=== PATIENT | male | born 1990 | race Caucasian/White ===

== ENCOUNTER → 2019-05-30 14:23 | Outpatient (CLI) | payer OTHER, SELFPAY ==
[2019-05-30 15:51] LABS: Liquefaction Semen YES (YES); Volume Semen 7.75 (1.0-5.0)
[2019-05-30 15:52] LABS: Sperm Count 105 x10^6/mL (20-150); Sperm Morphology 18 %ABNORM (0-30); Sperm Motility 70% % Motile
== END ==
PROVIDERS: Referring Provider Obstetrics & Gynecology; Visit Provider Obstetrics & Gynecology
DX: Z31.41 Encounter for fertility testing (principal)
CPT/HCPCS: 89320

== ENCOUNTER → 2019-11-03 07:34 | Outpatient (CLI) | payer OTHER, SELFPAY ==
[2019-11-08 15:08] LABS: CF Result Comment: (.)
== END ==
PROVIDERS: Obstetrics & Gynecology; PCP Student in an Organized Health Care Education/Training Program; Referring Provider Student in an Organized Health Care Education/Training Program; Visit Provider Student in an Organized Health Care Education/Training Program
DX: Z13.228 Encounter for screening for other metabolic disorders (principal)
CPT/HCPCS: 81223

== ENCOUNTER 2023-07-19 19:51 | Emergency (ER) | payer OTHER, SELFPAY ==
[2023-07-19 20:04] VITALS: BP 147/78; PULSE 94; RESP 16; TEMP 36.7; O2SAT 98; BMI 28.7
--- NOTE | 2023-07-19 20:13 | PC.NURSE ---
Pt right eye red, pt reports discharge coming from eye.Pt states this started today. Pt states mother is being treated for pink eye.
--- NOTE | 2023-07-19 20:17 | ED.EYEPROB ---
HPI - Eye Problem General Chief complaint: Eye Problems Stated complaint: eye infection Time Seen by Provider: 07/19/23 20:08 Source: patient Mode of arrival: Ambulatory History of Present Illness HPI Narrative: 33-year-old male presents for suspected pinkeye. Family member at home also has pinkeye and this morning he woke up with his right eye crusted over and matted shut. He continues to experience discharge from the eye in his here for evaluation and possible treatment. Denies use of glasses or contacts, denies vision changes, denies pain in his eye Related Data Allergies Allergy/AdvReac Type Severity Reaction Status Date / Time No Known Drug Allergies Allergy Verified 07/19/23 20:04 Review of Systems Review of Systems Narrative: See HPI Patient History Social History Smoking Status: Never smoker Smoking Status: Never smoker alcohol intake frequency: holidays/special occasions only Substance Use Type: does not use Exam Initial Vital Signs Initial Vital Signs: Vital Signs Temperature 98.0 F 07/19/23 20:04 Pulse Rate 94 H 07/19/23 20:04 Respiratory Rate 16 07/19/23 20:04 Blood Pressure 147/78 H 07/19/23 20:04 Pulse Oximetry 98 07/19/23 20:04 Oxygen Delivery Method Room Air 07/19/23 20:04 Const: Awake, alert, no acute distress, nontoxic appearing Eyes: Left eye normal, right eye with conjunctival injection, scant purulent crusting in corners, no photophobia, PERRL, EOMI Skin: Warm, Dry, intact, no rashes Neuro: AO x3, CN II-XII grossly intact, moves all extremities Course Orders Ordered: Discontinued Medications Ofloxacin (Ofloxacin 0.3% Ophth Prepack) 1 bottle MISC DIRECTED ONE Stop: 07/19/23 20:18 Last Admin: 07/19/23 20:25 Dose: 2 drops Documented By: DRE Vital Signs Vital signs: Vital Signs - 8 hr 07/19/23 20:04 07/19/23 20:28 Temperature 98.0 F Pulse Rate 94 H Respiratory Rate 16 17 Blood Pressure 147/78 H Pulse Oximetry 98 Oxygen Delivery Method Room Air Room Air MDM - Eye Problem Differential Diagnosis Differential diagnosis: Likely conjunctivitis, periorbital cellulitis and corneal ulcer MDM Narrative Medical decision making narrative: Bacterial conjunctivitis of right eye. Patient has no pain, vision changes, photophobia to suspect underlying more sinister condition. Since pharmacies are closed and patient lives in [place] a bottle of antibiotic drops were sent with the patient home. He was counseled on the importance of close follow up. Discharge Plan Departure Patient Disposition: Home Clinical Impression: Bacterial conjunctivitis Instructions: DI for Conjunctivitis Activity Restrictions/Additional Instructions: USE THE DROPS FOLLOWED: 1-2 DROPS EVERY 2-4 HOURS WHILE AWAKE FOR 2 DAYS, THEN 4 TIMES DAILY FOR 5 DAYS FOR TOTAL OF 7 DAYS OF TREATMENT. Referrals: Miscellaneous,Doctor, MD [Primary Care Provider] - Stand Alone Forms: Patient Portal/API
[2023-07-19] MEDS: OFLOXACIN 0.3% OPHTH PREPACK 1 BOTTLE MISC (20:25)
[2023-07-19 20:28] VITALS: RESP 17
== END 2023-07-19 20:31 | disposition home or self-care (01) ==
PROVIDERS: Emergency Provider Emergency Medicine
DX: H10.9 Unspecified conjunctivitis (principal)
CPT/HCPCS: 99281; 99282